=== PATIENT | female | born 1990 | race Two or more races ===

== ENCOUNTER 2025-02-02 14:41 | Inpatient (IN) | payer SELFPAY ==
[2025-02-02] MEDS ORDERED: Sodium Chloride 0.9% 10 ML Syringe FLUSH PRN (15:18)
[2025-02-02] MEDS ORDERED: Lidocaine 1% 50 ML MDV INJECT PRN (15:18)
[2025-02-02] MEDS ORDERED: Ondansetron 4 MG/2 ML SDV IVPUSH PRN (15:18)
[2025-02-02] MEDS ORDERED: Calcium Carbonate 500 MG Tab.Chew PO PRN (15:30)
[2025-02-02] MEDS ORDERED: Oxytocin/0.9 % Sodium Chloride 30 UNIT/500 ML BAG IV SCH (15:30)
[2025-02-02 16:10] LABS: BASOPHILS PERCENT AUTO 0.4 % (0.0-1.0); EOSINOPHILS ABSOLUTE AUTO 0.1 K/mm3 (0.0-0.4); EOSINOPHILS PERCENT AUTO 0.8 % (0.0-6.0); HEMATOCRIT 37.1 % (37.0-47.0); HEMOGLOBIN 12.9 gm/dl (12.0-16.0); IMMATURE GRAN ABSOLUTE AUTO 0.08 K/mm3 (0.00-0.05); LYMPHOCYTES ABSOLUTE AUTO 1.8 K/mm3 (1.0-4.8); LYMPHOCYTES PERCENT AUTO 23.5 % (24.0-44.0); MEAN CORPUSCULAR HEMOGLOBIN 33.1 pg (28.0-32.0); MEAN CORPUSCULAR HGB CONC 34.8 g/dl (32.0-36.0); MEAN CORPUSCULAR VOLUME 95.1 fl (83.0-99.0); MEAN PLATELET VOLUME 11.1 fl (9.4-12.3); MONOCYTES ABSOLUTE AUTO 0.6 K/mm3 (0.0-0.8); MONOCYTES PERCENT AUTO 7.1 % (0.0-8.0); NEUTROPHILS ABSOLUTE AUTO 5.2 K/mm3 (1.8-7.7); NEUTROPHILS PERCENT AUTO 67.2 % (41.0-71.0); PLATELET COUNT,PLT 211 K/mm3 (150-400); WHITE BLOOD CELL COUNT,WBC 7.73 K/mm3 (3.9-11.3)
[2025-02-02 16:37] LABS: CREATININE 0.7 mg/dL (0.55-1.02); EST CRCL DRUG DOSING (CG) 88.72 mL/min; URIC ACID 5.8 mg/dL (2.6-6.0)
[2025-02-02] MEDS: Lactated Ringers 1,000 ML IV SCH (16:52)
[2025-02-02] MEDS: Ampicillin 2 GM in Sodium Chloride 0.9% 100 ML IV ONE (16:52)
[2025-02-02] MEDS: Oxytocin/0.9 % Sodium Chloride 30 UNIT/500 ML BAG IV SCH (16:52)
[2025-02-02 19:05] LABS: CREATININE,URINE RAND 58.8 mg/dL (30.0-125.0); PROTEIN CREATININE RATIO,URINE 188.8 mg/g (0-149); PROTEIN,URINE RANDOM 11.1 mg/dL (0.0-11.8)
[2025-02-02] MEDS: Ampicillin 1 GM in Sodium Chloride 0.9% 100 ML IV SCH (20:58)
[2025-02-02] MEDS: Nalbuphine 10 MG/1 ML Vial IVPUSH PRN (21:43)
[2025-02-03] MEDS ORDERED: Ampicillin 1 GM in Sodium Chloride 0.9% 100 ML IV SCH (01:00)
[2025-02-03] MEDS: Benzocaine/Menthol 20%-0.5% Spray 78 GM Cannister TOP PRN (02:46)
[2025-02-03] MEDS: Witch Hazel Medicated Pads 40/Jar TOP PRN (02:46)
[2025-02-03] MEDS: Ibuprofen 600 MG Tab PO SCH ×2 (04:36→10:16)
[2025-02-03] MEDS: Acetaminophen 325 MG Tab PO PRN (15:26)
== END 2025-02-03 18:45 | disposition home or self-care (01) | DRG 807 ==
LOC: JD.OBCHECK 14:41 → JD.OB 14:42 → JD.OBCHECK 16:58 → JD.OB 16:59 → OBSVTOIN 02-03 00:09 → JD.OB 02-03 00:10
PROVIDERS: ADMIT Obstetrics & Gynecology; ATTEND Obstetrics & Gynecology
PROC: 10E0XZZ Delivery of Products of Conception, External Approach (ICD-10-PCS; principal; 2025-02-03)
PROC: 10907ZC Drainage of Amniotic Fluid, Therapeutic from Products of Conception, Via Natural or Artificial Opening (ICD-10-PCS; 2025-02-03)
DX: O99.824 Streptococcus B carrier state complicating childbirth (principal); Z37.0 Single live birth; O34.219 Maternal care for unspecified type scar from previous cesarean delivery; Z3A.39 39 weeks gestation of pregnancy
CPT/HCPCS: 36415; 59025; 59409; 82565; 82570; 83615; 84112; 84156; 84450; 84460; 84520; 84550; 85025; 86592; 86850; 86900; 86901; A9270-GY; J0290; J2300; J7120; J7999